=== PATIENT | female | born 2000 | race Caucasian/White ===

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

== ENCOUNTER → 2021-03-29 | Outpatient (CLI) | payer MEDICAID ==
[~2021-03-29] MED LIST changes: +ACET500T68 PO; +ASPI-630 PO; +FAMO20TA5 PO; +FLUT16SP NS; +GABA-585 PO; +HYDR-2761 PO; +IBUP-1007 PO; -LISI-517 PO; +LISI5TAB15 PO; +LORA10TA3 PO; +METO25TA4 PO; +PROC10TA57 PO; +VENTOLIN HFA18 GM INH
--- NOTE | 2021-03-29 14:00 | KCIC ---
Examination: MRI of the right ankle without contrast HISTORY: History of chronic right ankle pain COMPARISON: 09/03/2018 TECHNIQUE: Multiplanar, multisequence MR imaging of the right ankle was performed without contrast FINDINGS: The attachment of the Achilles tendon to the calcaneus grossly appears intact. The attachment of the plantar fascia to the inferior aspect of the calcaneus grossly appears intact. The alignment of the t arsal bones grossly appears unremarkable. The deltoid ligament, anterior, posterior tibiofibular, caren ofibular ligaments appear intact. The anterior extensor compartment tendons, peroneal tendons, flexor tendons grossly appears intact. There is a small 6 mm osteochondral defect in the mid talar dome (pr ior 5 mm) Fat is identified within the sinus tarsi. IMPRESSION: Small 6 mm osteochondral defect in the mid talar dome again identified. Electronically signed by: Douglas Donald MD (03/29/2021 1:58 PM) [id number]
== END ==
LOC: KCIC MRI 10:45
PROVIDERS: ATTEND Podiatrist
DX: M21.6X1 Other acquired deformities of right foot (principal)
CPT/HCPCS: 73721

== ENCOUNTER → 2021-04-16 | Outpatient (CLI) | payer MEDICAID | LOC: LAB 09:13 | PROVIDERS: ATTEND Podiatrist | DX: M25.371 Other instability, right ankle (principal); M93.271 Osteochondritis dissecans, right ankle and joints of right foot; Z01.812 Encounter for preprocedural laboratory examination; Z20.822 Contact with and (suspected) exposure to COVID-19 | CPT/HCPCS: U0003 ==

== ENCOUNTER 2021-04-17 05:58 | Day surgery (SDC) | payer MEDICAID ==
[~2021-04-17] VITALS: Ht 162.6 cm; Wt 100.9 kg
[~2021-04-17 05:58] MED LIST changes: -ACET500T68 PO; -ASPI-630 PO; -GABA-585 PO; -HYDR-2761 PO; -IBUP-1007 PO
[2021-04-17] MEDS ORDERED: IV RINGERS,LACTATED 1000ML 1,000 ML IV SCH (06:00)
[2021-04-17] MEDS ORDERED: fentaNYL PF VIAL 100 MCG/2 ML VIAL IVP PRN (06:00)
[2021-04-17] MEDS ORDERED: PROCHLORPERAZINE 10 MG/2 ML VIAL. IVP PRN (06:00)
[2021-04-17] MEDS ORDERED: HYDROmorphone 2 MG/ML VIAL IVP PRN (06:00)
[2021-04-17] MEDS ORDERED: MORPHINE SULFATE 2 MG/ML INJ. IVP PRN (06:00)
[2021-04-17] MEDS ORDERED: PROPOFOL 10 MG/ML (20ML) VIAL. IV ONE ×2 (06:27→07:24)
[2021-04-17] MEDS ORDERED: LIDOCAINE 2% PF 5 ML VIAL. ONE ×2 (06:27→07:24)
[2021-04-17] MEDS ORDERED: ONDANSETRON PF 4 MG/2 ML VIAL. ONE ×2 (06:27→07:24)
[2021-04-17] MEDS ORDERED: DEXAMETHASONE SOD PHOS 4 MG/ML VIAL ONE ×2 (06:27→07:24)
[2021-04-17 06:28] VITALS: BP 146/101
[2021-04-17] MEDS ORDERED: BUPIVACAINE MPF 0.25% 30 ML VIAL. ONE (06:47)
--- NOTE | 2021-04-17 07:09 | PDOC1 ---
History and Physical Date of Admission Date of Admission DATE: 04/17/21 TIME: 07:07 Identification/Chief Complaint Chief Complaint Right ankle instability Source Source: Chart review, Patient History of Present Illness History of Present Illness Ms Murguia is a 20yo female with PMHx Anxiety, GERD, Hypertension, Migraines who comes to outpatient surgery for right ankle instability for elective corrective surgery. No recent sick contacts. She took her morning metoprolol. Preop hCG COVID-19 negative. Of the right ankle pain and weakness she has no complaints today no chest pain shortness of breath no recent travel no history of DVT no history of problems with anesthesia. EKG 2020 reviewed sinus rhythm. Past Medical History Cardiovascular: HTN GI: GERD Past Surgical History Past Surgical History ADENOIDECTOMY, R. ANKLE, Endometrial Sx 04/28/19 Past Surgical History: Tonsillectomy Family History Family History: Hypertension Social History Smoke: No ALCOHOL: none Drugs: None Current Medications Current Medications Current Medications Fentanyl Citrate (Fentanyl 2ml Vial) 25 mcg PRN Q5MIN PRN IVP MILD PAIN 1-3; Start 04/17/21 at 06:00; Stop 04/18/21 at 05:59 Fentanyl Citrate (Fentanyl 2ml Vial) 50 mcg PRN Q5MIN PRN IVP MODERATE PAIN 4- 6; Start 04/17/21 at 06:00; Stop 04/18/21 at 05:59 Morphine Sulfate (Morphine Sulfate) 1 mg PRN Q10MIN PRN IVP SEVERE PAIN 7-10; Start 04/17/21 at 06:00; Stop 04/18/21 at 05:59 Ringer's Solution 1,000 ml @ 30 mls/hr Q24H IV Last administered on 04/17/21at 06:42; Start 04/17/21 at 06:00; Stop 04/17/21 at 17:59 Hydromorphone HCl (Dilaudid) 0.5 mg PRN Q10MIN PRN IVP SEVERE PAIN 7-10, 2nd CHOICE; Start 04/17/21 at 06:00; Stop 04/18/21 at 05:59 Prochlorperazine Edisylate (Compazine) 5 mg PACU PRN PRN IVP NAUSEA, MRX1; Start 04/17/21 at 06:00; Stop 04/18/21 at 05:59 Cefazolin Sodium/ Dextrose 50 ml @ 100 mls/hr 1X PREOP PRN IV PRIOR TO PROCEDURE; Start 04/17/21 at 06:00; Stop 04/17/21 at 18:00 Propofol (Diprivan) 200 mg STK-MED ONCE IV ; Start 04/17/21 at 06:27; Stop 04/17/21 at 06:27; Status DC Lidocaine HCl (Lidocaine Pf 2% Vial) 5 ml STK-MED ONCE .ROUTE ; Start 04/17/21 at 06:27; Stop 04/17/21 at 06:27; Status DC Dexamethasone Sodium Phosphate (Decadron) 4 mg STK-MED ONCE .ROUTE ; Start 04/17/21 at 06:27; Stop 04/17/21 at 06:27; Status DC Ondansetron HCl (Zofran) 4 mg STK-MED ONCE .ROUTE ; Start 04/17/21 at 06:27; Stop 04/17/21 at 06:27; Status DC Bupivacaine HCl (Sensorcaine Mpf 0.25%) 30 ml STK-MED ONCE .ROUTE ; Start 04/17/21 at 06:47; Stop 04/17/21 at 06:48; Status DC Active Scripts Active Reported Famotidine 20 Mg Tablet 20 Mg PO DAILY Loratadine 10 Mg Tablet 10 Mg PO DAILY Metoprolol Tartrate 25 Mg Tablet 25 Mg PO BID Fluticasone Propionate Nasal [place] (Fluticasone Propionate) 16 Gm [place].susp 2 [place] NS DAILY Ventolin Hfa Inhaler (Albuterol Sulfate) 18 Gm Hfa.aer.ad 2 Puff INH PRN QID PRN Compazine (Prochlorperazine Maleate) 10 Mg Tablet 5 Mg PO PRN 1X PRN Naproxen 500 Mg Tablet.dr 1 Tab PO BID Magnesium (Magnesium Oxide) 400 Mg Capsule 400 Mg PO PRN PRN Triamcinolone Acetonide 80 Gm Oint...g. 80 Gm TP PRN PRN Benadryl (Diphenhydramine Hcl) 25 Mg Capsule 25 Mg PO PRN PRN Ashlyna 0.15-0.03-0.01 mg Tab (q-[id number] Estr/Ethin Estra) 1 Each Tbdspk.3mo 1 Each PO DAILY Allergies Allergies: Coded Allergies: lamotrigine (Unverified Allergy, Intermediate, HIVES, 04/17/21) latex (Verified Allergy, Intermediate, Itching, 04/17/21) ROS General: No: Chills, Night Sweats, Fatigue, Malaise, Appetite, Other PSYCHOLOGICAL ROS: No: Anxiety, Behavioral Disorder, Concentration difficultie, Decreased libido, Depression, Disorientation, Hallucinations, Hostility, Irritablity, Memory difficulties, Mood Swings, Obsessive thoughts, Physical abuse, Sexual abuse, Sleep disturbances, Suicidal ideation, Other Eyes: No Blurry vision, No Decreased vision, No Double vision, No Dry eyes, No Excessive tearing, No Eye Pain, No Itchy Eyes, No Loss of vision, No Photophobia, No Scotomata, No Uses contacts, No Uses glasses, No Other HEENT: No: Heacaches, Visual Changes, Hearing change, Nasal congestion, Nasal discharge, Oral lesions, Sinus pain, Sore Throat, Epistaxis, Sneezing, Snoring, Tinnitus, Vertigo, Vocal changes, Other ALLERGY AND IMMUNOLOGY: No: Hives, Insect Bite Sensitivity, Itchy/Watery Eyes, Nasal Congestion, Post Nasal Drip, Seasonal Allergies, Other Hematological and Lymphatic: No: Bleeding Problems, Blood Clots, Blood Transfusions, Brusing, Night Sweats, Pallor, Swollen Lymph Nodes, Other ENDOCRINE: No: Breast Changes, Galactorrhea, Hair Pattern Changes, Hot Flashes, Malaise/lethargy, Mood Swings, Palpitations, Polydipsia/polyuria, Skin Changes, Temperature Intolerance, Unexpected Weight Changes, Other Breast: No New/Changing Breast Lumps, No Nipple changes, No Nipple discharge, No Other Respiratory: No: Cough, Hemoptysis, Orthopnea, Pleuritic Pain, Shortness of breath, SOB with excertion, Sputum Changes, Stridor, Tachypnea, Wheezing, Other Cardiovascular: No Chest Pain, No Palpitations, No Orthopnea, No Paroxysmal Noc. Dyspnea, No Edema, No Lt Headedness, No Other Gastrointestinal: No Nausea, No Vomiting, No Abdominal Pain, No Diarrhea, No Constipation, No Melena, No Hematochezia, No Other Genitourinary: No Dysuria, No Frequency, No Incontinence, No Hematuria, No Retention, No Discharge, No Urgency, No Pain, No Flank Pain, No Other, No , No , No , No , No , No , No Musculoskeletal: Yes Joint Stiffness; No Gait Disturbance, No Joint Pain, No Joint Swelling, No Muscle Pain, No Muscular Weakness, No Pain In:, No Swelling In:, No Other Neurological: No Behavorial Changes, No Bowel/Bladder ControlChng, No Confusion, No Dizziness, No Gait Disturbance, No Headaches, No Impaired Coord/balance, No Memory Loss, No Numbness/Tingling, No Seizures, No Speech Problems, No Tremors, No Visual Changes, No Weakness, No Other Skin: No Dry Skin, No Eczema, No Hair Changes, No Lumps, No Mole Changes, No Mottling, No Nail Changes, No Pruritus, No Rash, No Skin Lesion Changes, No Other, No Acne Physical Exam General: Alert, Oriented X3, Cooperative, No acute distress HEENT: Atraumatic, PERRLA, EOMI, Mucous membr. moist/pink Lungs: Clear to auscultation, Normal air movement Heart: S1S2, RRR, no thrills, no rubs, no gallops, no murmurs Abdomen: Normal bowel sounds, Soft, No tenderness, No hepatosplenomegaly, No masses Extremities: No clubbing, No cyanosis, No edema, Normal pulses, No tenderness/swelling Skin: No rashes, No breakdown, No significant lesion Neuro: Normal gait, Normal speech, Strength at 5/5 X4 ext, Normal tone, Sensation intact, Cranial nerves 3-12 NL, Reflexes 2+ Psych/Mental Status: Mental status NL, Mood NL Vitals Vitals Vital Signs Date Time Temp Pulse Resp B/P (MAP) Pulse Ox O2 Delivery O2 Flow Rate FiO2 04/17/21 06:31 97.5 105 18 146/101 99 Room Air 97.5 Labs Labs Laboratory Tests Test 04/17/21 06:14 Bedside Urine HCG, Qualitative Hcg negative (Negative) Laboratory Tests Test 04/17/21 06:14 Bedside Urine HCG, Qualitative Hcg negative (Negative) Images Images MRI Right ankle: The attachment of the Achilles tendon to the calcaneus grossly appears intact. The attachment of the plantar fascia to the inferior aspect of the calcaneus grossly appears intact. The alignment of the tarsal bones grossly appears unremarkable. The deltoid ligament, anterior, posterior tibiofibular, talofibular ligaments appear intact. The anterior extensor compartment tendons, peroneal tendons, flexor tendons grossly appears intact. There is a small 6 mm osteochondral defect in the mid talar dome (prior 5 mm) Fat is identified within the sinus tarsi. IMPRESSION: Small 6 mm osteochondral defect in the mid talar dome again identified. VTE Prophylaxis Ordered VTE Prophylaxis Devices: Yes VTE Pharmacological Prophylaxi: No Assessment/Plan Assessment/Plan A/P: Right ankle instability - no further testing required prior to planned surgery Tachycardia - taking metoprolol, compliant Anxiety - stable GERD - H2 amilcar Hypertension - BB Migraines - on BB FEN -NPO PPX - SCDs FULL CODE Dispo - outpatient surgery Contact if patient requires hospital admission or for any questions Justifications for Admission Other Justification SHWETHA TRIPP MD Apr 17, 2021 07:08
[2021-04-17] MEDS ORDERED: KETOROLAC 30 MG/ML VIAL. ONE (07:24)
[2021-04-17] MEDS ORDERED: ROCURONIUM 50 MG/5 ML VIAL. ONE (07:24)
[2021-04-17] MEDS ORDERED: NEOSTIGMINE METHYLSULFATE 5 MG/5 ML SYRINGE. ONE (07:49)
[2021-04-17] MEDS ORDERED: GLYCOPYRROLATE 1 MG/5 ML VIAL. ONE (07:49)
[2021-04-17] MEDS ORDERED: fentaNYL PF VIAL 100 MCG/2 ML VIAL ONE ×2 (08:08→09:46)
[2021-04-17] MEDS ORDERED: SEVOFLURANE 61 TO 120 MINUTES. IH ONE (09:11)
[2021-04-17] MEDS ORDERED: HYDROmorphone 2 MG/ML VIAL ONE (09:20)
[2021-04-17] MEDS ORDERED: oxyCODONE/APAP 5/325 1 TAB TABLET PO ONE (09:30)
[2021-04-17] MEDS ORDERED: ACETAMINOPHEN 325 MG TABLET. PO ONE (09:30)
[2021-04-17] MEDS ORDERED: DEXTROSE 50% 25 GM / 50ML DISP.SYRIN. IV PRN (09:30)
[2021-04-17] MEDS ORDERED: GABAPENTIN 100 MG CAPSULE. PO ONE (09:30)
--- NOTE | 2021-04-17 09:30 | PDOC4 ---
OPERATIVE NOTE Date: Date: Apr 17, 2021 Pre-Op Diagnosis: Right ankle instability, ATFL insufficiency, peroneal tendonitis Post-Op Diagnosis: Same as above Procedure Performed: Right peroneal tendon repair and tubularization, low PB muscle belly excision, Brostrm Wilkerson repair with Arthrex suture tape augmentation, subchondral drilling to the anterior lateral talar dome in the setting of OCD Surgeon: Gio Slaughter DPM Anesthesia Type: General Blood Loss: 5 cc Specimans Obtained: None Findings: Laxity in the ATFL however without rupture. The anterior inferior tib-fib ligament was intact without significant sclerotic or calcified tissue in the distal tib-fib joint. Low PB muscle belly with partial split tear, grade 1 to the PB tendon at the level of the posterior ankle joint. The fibular groove was deep without peroneal subluxation upon passive ankle plantarflexion and inversion. Denuded cartilage to the anterior lateral talar dome measures approximately 0.6 x 0.8 cm without any loose body or delamination of the surrounding cartilage. Complications: None Operative Note: Under mild sedation, patient was brought into the operating room and placed on the operating table in the supine position. A formal timeout was performed to confirm patient's identity, procedure and procedure site. Following general anesthesia and preoperative IV antibiotics, a well-padded right thigh tourniquet was applied. Patient was then positioned in a lateral decubitus position with all the prominent osseous structures padded. The right lower extremity was then scrubbed, prepped and draped using aseptic techniques. The right lower extremity was exsanguinated and the tourniquet was inflated to 250 millimercury. The attention was directed to the lateral distal ankle where a curvilinear incision was made over the course of peroneal tendon traversing anteriorly towards the anterior lateral ankle gutter and 4th metatarsal base. The incision was carried deep with a combination of sharp and blunt dissection. After the peroneal retinaculum and peroneal tendon sheath were visualized, Metzenbaum scissors were used to incise the peroneal tendon sheath leaving 2 mm posterior fibular soft tissue cuff for later capsule closure. At this time, we noticed low PB muscle belly with partial split tear, delamination at the posterior aspect of the PB tendon at the level of the ankle joint. Otherwise, there was no significant tenosynovitis. The PB muscle belly was cauterized and excised. The degenerated PB tendon was excised and prepped with a #15 blade to debride the tenditonon. 3.0 Ethibond was used to retubularized the PB tendon. Passive ankle range of motion was unremarkable for tendon subluxation or shallow fibular groove posteriorly. The surgical site was irrigated with copious saline solution. The peroneal tendon sheath was repaired with 2-0 Vicryl. Then the attention was directed to the distal anterior ankle gutter. Using a combination of sharp and blunt dissection with care to protect and retract all the neurovascular bundles, the retinaculum and joint capsule was visualized. From the sinus tarsi, a blunt mosquito clamp was used to establish the course and trajectory of the lateral ankle gutter. The Bovie was used to incise the lateral ankle capsule while protecting the underlying cartilage. After the joint was visualized, we noticed cartilage diminution without fibrillation to the anterior lateral talar dome shoulder measures approximately 0.6 x 0.8 cm. Subchondral drilling was performed with 0.062 inch K wire, x6 with remarked underlying bone marrow extravasation. Then the junction of the talar neck and head was visualized and drilled for 4.75 mm Arthrex suture anchor. Precaution and intraoperative x-ray were taken to assure the anchor was placed extra-art icular from the subtalar joint and ankle joint. Then the suture tapes were transferred with a free needle to extra-capsular. Then the attention was directed to the distal anterior fibula. The periosteum was gently elevated to establish the landmarks for 0.9 mm DX Fibertak. Care and precaution were taken to assure the placement of the Fibertaks were extra articular. Then the 4 armed fiberwires from the 2 fibertaks were used to repair and tighten the lateral ankle capsule while the ankle was held maximally dorsiflexed and everted. Then the swivel lock was used to secure the fiber tapes from the talar component to the anterior distal fibula. Care and precaution to place the swivel lock extra- articular and away from the fibertaks, to follow recreate the anatomical trajectory of the ATFL, to assure proper tensioning with ankle at neutral and 10 degrees plantar flexed. After proper placement of the swivel lock, satisfactory fiber tape tension was noticed without either overtightening or under tightening. Passive ankle range of motion was free from popping, catching. Repeated anterior drawer test was negative. The extensor retinaculum was reinforced with the 4 armed fiberwires as part of the Wilkerson repair. Extra FiberWire sutures and fiber tapes were cut with a #15 blade. The surgical sites was irrigated with copious saline solution. The surgical site was closed with a combination of 3-0 Vicryl, 4 Monocryl and 4 nylon. 10 cc of 0.5% Marcaine plain was infiltrated into the surgical site for postoperative augmentation. The surgical site was covered with Arthrex jumpstart dressing, 4 x 4, ABD and soft roll. The right lower extremity was immobilized in a well-padded Huggins compression splint with ankle held in near neutral position. Tourniquet was deflated and adequate digital perfusion was noted. Patient tolerated anesthesia and surgery well with vital signs stable and neurovascular status intact. She was then transferred to PACU for continuous recovery, pending right ankle x-ray 3 view. GIO SLAUGHTER DPM Apr 17, 2021 09:30
[2021-04-17] MEDS: fentaNYL PF VIAL 100 MCG/2 ML VIAL IVP PRN ×2 (09:50→09:55)
[2021-04-17] MEDS ORDERED: HYDR-2761 PO (09:57)
[2021-04-17] MEDS ORDERED: GABA-585 PO (09:57)
[2021-04-17] MEDS ORDERED: ACET500T68 PO (09:58)
[2021-04-17] MEDS ORDERED: IBUP-1007 PO (09:58)
[2021-04-17] MEDS ORDERED: ASPI-630 PO (09:59)
[2021-04-17 10:10] VITALS: BP 140/64
--- NOTE | 2021-04-17 10:18 | RAD ---
EXAM: Right ankle 3 views. HISTORY: Postoperative, talar osteochondral lesion COMPARISON: 03/13/2021 FINDINGS: Three views of the right ankle are obtained. The patient is in splint, limiting underlying bony detail. A defect along the central talar dome span s 4 mm and appears to have been at least partially filled. The joint spaces and alignment of the mort ise are maintained. IMPRESSION: 1. Status post operative treatment of a talar osteochondral lesion. Electronically signed by: Mingo Walton MD (04/17/2021 10:15 AM) [id number]
== END 2021-04-17 10:45 | disposition home or self-care (01) ==
LOC: SURG 05:58
PROVIDERS: ATTEND Podiatrist
DX: M25.371 Other instability, right ankle (principal); M76.71 Peroneal tendinitis, right leg; M93.271 Osteochondritis dissecans, right ankle and joints of right foot; I10 Essential (primary) hypertension; K21.9 Gastro-esophageal reflux disease without esophagitis; F41.9 Anxiety disorder, unspecified; F32.9 Major depressive disorder, single episode, unspecified; G43.909 Migraine, unspecified, not intractable, without status migrainosus; Z79.82 Long term (current) use of aspirin; Z79.899 Other long term (current) drug therapy; Z98.890 Other specified postprocedural states; Z91.040 Latex allergy status; Z88.8 Allergy status to other drugs, medicaments and biological substances
CPT/HCPCS: 27658; 27695; 73610; 81025; J0690; J1100; J1170; J1885; J2405; J2704; J2710; J3010; J3490; A4930; A6223; A6253; A6402; A6449; A6450; A6455; C1713